=== PATIENT | female | born 2000 | race Caucasian/White ===

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

== ENCOUNTER 2021-05-18 15:03 | Outpatient (CLI) | payer OTHER, SELFPAY ==
--- NOTE | 2021-05-18 15:12 | US_ITS ---
WS: [id number] ULTRASOUND BREAST BILATERAL TECHNIQUE: Ultrasound bilateral breast focused area of concern. CLINICAL INFORMATION: BREAST TENDERNESS COMPARISON: None. FINDINGS: Bilateral breast ultrasound in all 4 quadrants and areola. RIGHT BREAST: Dense parenchymal tissue. Incidental cyst at the 6 clock position measuring 3.2 x 2.7 m m. No underlying suspicious lesions. No lesions to target for biopsy. LEFT BREAST: Dense underlying parenchymal tissue. No suspicious cystic or solid lesions. No lesions t o target for biopsy. US/US breast BI limited* [id number] IMPRESSION: No suspicious findings bilaterally. BI-RADS 2 benign FOLLOW UP: Screening mammography age 41
== END 2021-05-18 15:04 | disposition home or self-care (01) ==
PROVIDERS: PCP Family Medicine; Visit Provider Family Medicine
DX: N64.4 Mastodynia (principal); N60.01 Solitary cyst of right breast
CPT/HCPCS: 76642

== ENCOUNTER 2021-07-29 13:12 | Outpatient (CLI) | payer OTHER, SELFPAY ==
--- NOTE | 2021-07-29 13:21 | MR_ITS ---
WS: [id number] MRI HEAD WITH CONTRAST TECHNIQUE: Sagittal T1, T2 axial, T2 axial FLAIR, axial susceptibility weighted imaging, axial diffus ion weighted images, and coronal T2 images were obtained. Pre and post-T1 axial and post T1 coronal i mages. ADC and FSPGR images. CLINICAL INFORMATION: MIGRAINE HEADACHE COMPARISON: None. FINDINGS: No evidence of restricted diffusion to suggest acute ischemia. Ventricular system and basal cisterns are patent. Normal castro-white differentiation. Normal posterior fossa. Normal vascular flow voids at the skull base. No extra-axial fluid collections. No evidence of mass or mass effect. Paranasal sinus es and mastoid air cells well aerated. Normal posterior nasopharynx. Normal castro-white differentiatio n. No hemosiderin on susceptibly weighted images. Normal optic chiasm and pituitary infundibulum. Tempor al lobes and hippocampal formations are normal in appearance. Normal mesial temporal lobes. Normal ca vernous sinuses and Meckel's cave.No abnormal gadolinium enhancement. Normal dural venous sinuses. MR/MR head wo/w con [id number] IMPRESSION: 1. No evidence of restricted diffusion to suggest acute ischemia. 2. No suspicious intracranial signal abnormalities. Normal castro-white differen tiation. 3. Normal posterior fossa and cerebellar tonsils. 4. No hemosiderin on susceptibly weighted images. 5. No abnormal gadolinium enhancement. 6. No other significant findings.
[2021-07-29] MEDS: gadobenate dimeglumine 20 mL vial IV (14:31)
== END 2021-07-29 13:13 | disposition home or self-care (01) ==
PROVIDERS: PCP Family Medicine; Visit Provider Family Medicine
DX: G81.90 Hemiplegia, unspecified affecting unspecified side (principal); R20.9 Unspecified disturbances of skin sensation; G43.909 Migraine, unspecified, not intractable, without status migrainosus
CPT/HCPCS: 70553

== ENCOUNTER → 2021-12-22 12:29 | Outpatient (BNVA) | payer OTHER, SELFPAY | PROVIDERS: PCP Family Medicine; Visit Provider Clinical Nurse Specialist Adult Health | DX: J02.9 Acute pharyngitis, unspecified (principal) | CPT/HCPCS: 87880 ==

== ENCOUNTER → 2022-05-10 12:57 | Outpatient (BNVA) | payer OTHER, SELFPAY | PROVIDERS: PCP Family Medicine; Visit Provider Family Medicine | DX: R19.7 Diarrhea, unspecified (principal) | CPT/HCPCS: 83630; 87493; 87506 ==

== ENCOUNTER → 2022-08-02 08:24 | Outpatient (BNVA) | payer OTHER, SELFPAY | PROVIDERS: PCP Clinical Nurse Specialist Adult Health; Visit Provider Clinical Nurse Specialist Adult Health | DX: R35.0 Frequency of micturition (principal) | CPT/HCPCS: 81000; 87077; 87086; 87184 ==

== ENCOUNTER → 2023-01-06 12:36 | Outpatient (BNVA) | payer OTHER, SELFPAY | PROVIDERS: PCP Clinical Nurse Specialist Adult Health; Visit Provider Clinical Nurse Specialist Adult Health | DX: F33.2 Major depressive disorder, recurrent severe without psychotic features (principal) | CPT/HCPCS: 80053; 84443; 85025 ==

== ENCOUNTER → 2023-02-23 10:24 | Outpatient (BNVA) | payer OTHER, SELFPAY | PROVIDERS: PCP Clinical Nurse Specialist Adult Health; Visit Provider Clinical Nurse Specialist Adult Health | DX: R30.0 Dysuria (principal); N30.01 Acute cystitis with hematuria | CPT/HCPCS: 81000; 87086 ==

== ENCOUNTER → 2023-11-07 10:00 | Outpatient (BNVA) | payer OTHER, SELFPAY | PROVIDERS: PCP Clinical Nurse Specialist Adult Health; Visit Provider Clinical Nurse Specialist Adult Health | DX: R30.0 Dysuria (principal); N30.01 Acute cystitis with hematuria | CPT/HCPCS: 81000 ==